=== PATIENT | male | born 2005 | race Two or more races ===

== ENCOUNTER 2024-10-11 22:18 | Emergency (ER) | payer SELFPAY ==
[~2024-10-11] VITALS: Ht 180.3 cm; Wt 70.1 kg
[2024-10-11 22:30] VITALS: BP 148/74; PULSE 64; RESP 18; TEMP 98; O2SAT 96
== END 2024-10-12 02:10 | disposition left against medical advice (07) ==
LOC: ER 22:18
DX: S61.011A Laceration without foreign body of right thumb without damage to nail, initial encounter (principal); Z53.21 Procedure and treatment not carried out due to patient leaving prior to being seen by health care provider; W26.8XXA Contact with other sharp object(s), not elsewhere classified, initial encounter; Y93.89 Activity, other specified; Y92.89 Other specified places as the place of occurrence of the external cause; Y99.8 Other external cause status